=== PATIENT | female | born 1940 ===

== ENCOUNTER 2018-07-03 09:39 | Outpatient (CLI) | payer OTHER | END 2018-07-03 11:51 | disposition home or self-care (01) | LOC: SONOGRAMA 09:39 | DX: M25.512 Pain in left shoulder (principal); M75.112 Incomplete rotator cuff tear or rupture of left shoulder, not specified as traumatic ==

== ENCOUNTER → 2020-05-27 | Outpatient (CLI) | payer OTHER | END | disposition home or self-care (01) | LOC: MRI 08:49 | PROVIDERS: ATTEND Independent Medical Examiner | DX: G31.84 Mild cognitive impairment of uncertain or unknown etiology (principal) | CPT/HCPCS: 70553; A9575 ==

== ENCOUNTER 2022-12-01 14:43 | Outpatient (CLI) | payer OTHER | END 2022-12-01 15:00 | disposition home or self-care (01) | LOC: RAD 14:43 | DX: M75.42 Impingement syndrome of left shoulder (principal) ==

== ENCOUNTER → 2022-12-22 | Outpatient (CLI) | payer OTHER | END | disposition home or self-care (01) | LOC: MRI 14:13 | DX: M75.42 Impingement syndrome of left shoulder (principal) | CPT/HCPCS: 73221 ==

== ENCOUNTER 2023-12-12 14:35 | Outpatient (CLI) | payer OTHER | END 2023-12-12 14:54 | disposition home or self-care (01) | LOC: RAD 14:35 | DX: M54.50 Low back pain, unspecified (principal); M25.561 Pain in right knee; M25.562 Pain in left knee ==

== ENCOUNTER 2024-11-06 11:27 | Outpatient (CLI) | payer OTHER | END 2024-11-06 11:35 | disposition home or self-care (01) | LOC: RAD 11:27 | DX: M54.2 Cervicalgia (principal) ==